=== PATIENT | female | born 1965 | race Caucasian/White ===

== ENCOUNTER 2024-10-09 13:52 | Emergency (ER) | payer MEDICAID ==
[~2024-10-09] VITALS: Ht 149.9 cm; Wt 55.2 kg
--- NOTE | 2024-10-09 15:51 | ED.PDOC ---
SOB-HPI HPI Comments 59 y.o female accompanied by spouse, presents to the ED for a chief complaint of a productive cough that started 2 months ago. Spouse reports patient recently had a CXR done that showed possible spots to lung region and is to follow up with securities vault supervisor on 10/18/24 to discuss further treatment. Patient has an inhaler at home and has been giving herself breathing treatments but states cough is constant lasting from minutes to hours. Patient denies any phlegm, chest pain, fever, chills, or SOB. Patient has a medical history of thyroid cancer, DM, HTN and hyperlipidemia. Chief Complaint: Cough Time Seen by MD: 15:41 Primary Care Provider: BALDEV Johns notes: Nurses Notes, Medications, Allergies Information Source: Patient, ECF Records Mode of Arrival: Ambulatory Severity: Moderate Timing: Months (2) Duration: Since onset Context: At Rest History of: Other Modifying Factors: Nothing; Exertion, Laying flat, Anxiety Associated Signs and Symptoms: Cough If cough with SOB: Productive Past Medical History PAST MEDICAL HISTORY: Cancer, DM, High Lipids, HTN Surgical History: Thyroidectomy SENIOR ELECTRONICS TECHNICIAN History: No Pertinent SENIOR ELECTRONICS TECHNICIAN History Family History Family History: Reviewed,noncontributory to illness Social History Smoker: Non-Smoker Alcohol: Denies ETOH Use Drugs: Denies Drug Use Lives In: Home Constitutional: denies: chills, diaphoresis, fatigue, fever, malaise, sweats, weakness, others EENTM: denies: blurred vision, double vision, ear bleeding, ear discharge, ear drainage, ear pain, ear ringing, eye pain, eye redness, hearing loss, mouth pain, mouth swelling, nasal discharge, nose bleeding, nose congestion, nose pain, photophobia, tearing, throat pain, throat swelling, voice changes, others Respiratory: reports: cough; denies: hemoptysis, orthopnea, SOB at rest, shortness of breath, SOB with excertion, stridor, wheezing, others Cardiovascular: denies: chest pain, dizzy spells, diaphoresis, Dyspnea on exertion, edema, irregular heart beat, left arm pain, lightheadedness, palpitations, PND, syncope, others Gastrointestinal: denies: abdomen distended, abdominal pain, blood streaked bowels, constipated, diarrhea, dysphagia, difficulty swallowing, hematemesis, melena, nausea, poor appetite, poor fluid intake, rectal bleeding, rectal pain, vomiting, others Genitourinary: denies: abnormal vagina bleeding, burning, dyspareunia, dysuria, flank pain, frequency, hematuria, incontinence, pain, , vagina discharge, urgency, others Neurological: denies: dizziness, fainting, headache, left sided numbness, left sided weakness, numbness, paresthesia, pre-existing deficit, right sided numbness, right sided weakness, seizure, speech problems, tingling, tremors, weakness, others Musculoskeletal: denies: back pain, gout, joint pain, joint swelling, muscle pain, muscle stiffness, neck pain, others Integumetry: denies: bruises, change in color, change in hair/nails, dryness, laceration, lesions, lumps, rash, wounds, others Allergic/Immunocompromised: denies: Difficulty Healing, Frequent Infections, H richa, Itching, others Hematologic/Lymphatic: denies: anemia, blood clots, easy bleeding, easy bruising, swollen glands, others Endocrine: denies: excessive hunger, excessive sweating, excessive thirst, excessive urination, flushing, intolerance to cold, intolerance to heat, unexplained weight gain, unexplained weight loss, others Psychiatric: denies: anxiety, bipolar disorder, depression, hopeless, panic disorder, schizophrenia, sleepless, suicidal, others All Other Systems: Reviewed and Negative Physical Exam General Appearance: No Apparent Distress, Normal HEENT: Normal ENT Inspection, Pharynx Normal, TMs Normal Neck: Full Range of Motion, Non-Tender, Normal, Normal Inspection Respiratory: No Accessory Muscle Use, Wheezing (scattered bilaterally ) Cardiovascular: No Edema, No JVD, No Murmur, No Gallop, Normal Peripheral Pulses, Regular Rate/Rhythm Breast Exam: Deferred Gastrointestinal: No Organomegaly, Non Tender, No Pulsatile Mass, Normal Bowel Sounds, Soft Genitalia: Deferred Pelvic: Deferred Rectal: Deferred Extremities: No calf tenderness, Normal capillary refill, Normal inspection, Normal range of motion, Non-tender, No pedal edema Musculoskeletal : Apperance: Normal Neurologic: Alert, fire management officer II-XII nml as Tested, No Motor Deficits, Normal Affect, Normal Mood, No Sensory Deficits Cerebellar Function: Normal Reflexes: Normal Skin: Dry, Normal Color, Warm Lymphatic: No Adenopathy Was a procedure done? Was a procedure done?: No Differential Dx Differential Diagnosis: Asthma, CHF, COPD, Pneumonia, Pneumothorax, URI, Other X-Ray, Labs, Meds, VS Vital Signs Date Time Temp Pulse Resp B/P (MAP) Pulse Ox O2 Delivery O2 Flow Rate FiO2 10/09/24 17:54 90 17 94 Room Air 10/09/24 17:54 98.9 90 17 124/97 (106) 94 98.9 10/09/24 16:24 110 10/09/24 15:59 16 94 Room Air* 0 21 10/09/24 13:55 22 95 Room Air* 0 21 10/09/24 13:55 98.1 91 22 171/98 (122) 95 98.1 Current Medications Medications (Trade) Dose Ordered Sig/Joanne Route Start Time Stop Time Status Last Admin Albuterol (Ventolin Medneb) 5 mg ONCE ONCE NEB 10/09/24 16:00 10/09/24 16:01 DC 10/09/24 15:59 Ipratropium [place] (Atrovent Medneb) 0.5 mg ONCE ONCE NEB 10/09/24 16:00 10/09/24 16:01 DC 10/09/24 15:59 Azithromycin (Zithromax Tablet) 500 mg ONCE ONCE PO 10/09/24 16:00 10/09/24 16:01 DC 10/09/24 16:06 Magnesium Oxide (Mag-Ox Tablet) 800 mg ONCE ONCE PO 10/09/24 16:00 10/09/24 16:01 DC 10/09/24 16:06 Time of 1ST Reevaluation: 18:05 Reevaluation 1ST: Improved Patient Education/Counseling: Diagnosis, Treatment Family Education/Counseling: Diagnosis, Treatment Departure 1 Departure Time of Disposition: 18:05 Impression: Primary Impression: Bronchospasm, acute Disposition: 01 HOME / SELF CARE / HOMELESS Condition: Critical e-Prescriptions Azithromycin (Azithromycin) 500 Mg Tab 1 TAB PO DAILY for 7 Days, #7 TAB Prov: WHITNEY OLIVO MD 10/09/24 Prednisone (Prednisone) 20 Mg Tab 20 MG PO DAILY for 5 Days, #5 TAB Prov: WHITNEY OLIVO MD 10/09/24 Albuterol Sulfate (Albuterol Sulfate Hfa) 108 Mcg/Act Aer 108 MCG IN Q6HP PRN for 9 Days, #1 AER Prov: WHITNEY OLIVO MD 10/09/24 Albuterol Sulfate (Albuterol Sulfate) 0.083 % Neb 1 VIAL NEB Q4HPRN PRN, #50 VIAL Prov: WHITNEY OLIVO MD 10/09/24 Discharged With: Self Critical Care Note Critical Care Time?: No Stability Stability form required: No Heart Score Heart Score: Heart Score Response (Comments) Value History Slightly Suspicious 0 EKG Normal 0 Age 45-64 1 Risk Factors 1 or 2 risk factors 1 Troponin Normal limit 0 Total 2 I personally scribed for WHITNEY OLIVO MD ([email or web address]) on 10/09/24 at 15:51. Electronically submitted by Myla Luo ([facility]). WHITNEY OLIVO MD Oct 09, 2024 15:51
[2024-10-09] MEDS: IPRATROPIUM BROM 0.5 MG/2.5ML INH SOL NEB ONE (15:59)
[2024-10-09] MEDS: ALBUTEROL SULF 2.5 MG/0.5ML(0.5%) NEB SOLN NEB ONE (15:59)
[2024-10-09] MEDS: MAGNESIUM OXIDE 400 MG TAB PO ONE (16:06)
[2024-10-09] MEDS: AZITHROMYCIN 250 MG TAB PO ONE (16:06)
--- NOTE | 2024-10-09 16:46 | DVH ---
EXAM: XY CHEST XRAY 1 VIEW HISTORY: SOB COMPARISON: None TECHNIQUE: Portable AP view of the chest was performed. FINDINGS: No pneumothorax, consolidative infiltrates, or pulmonary edema. There is mild central perib ronchial thickening. The heart is not enlarged. IMPRESSION: Mild reactive airways disease. The lungs are otherwise clear.
[2024-10-09] MEDS ORDERED: ALBU0.084 NEB (18:04)
[2024-10-09] MEDS ORDERED: PRED20TA2 PO (18:04)
[2024-10-09] MEDS ORDERED: ALBU108A5 IN (18:04)
[2024-10-09] MEDS ORDERED: AZIT500T66 PO (18:04)
[2024-10-09 18:39] VITALS: BP 122/84; PULSE 88; RESP 20; TEMP 98; O2SAT 96
== END 2024-10-09 18:43 | disposition home or self-care (01) ==
LOC: ER 13:52
DX: J98.01 Acute bronchospasm (principal); I10 Essential (primary) hypertension; E11.9 Type 2 diabetes mellitus without complications; E78.5 Hyperlipidemia, unspecified; Z85.850 Personal history of malignant neoplasm of thyroid; Z90.89 Acquired absence of other organs
CPT/HCPCS: 71045; 94640

== ENCOUNTER 2024-11-28 03:37 | Emergency (ER) | payer MEDICAID ==
[~2024-11-28] VITALS: Ht 160 cm; Wt 90.9 kg
[~2024-11-28 03:37] MED LIST: ALBU0.084 NEB; ALBU108A5 IN; AZIT500T66 PO; PRED20TA2 PO
--- NOTE | 2024-11-28 04:05 | ED.PDOC ---
HPI (NEURO) HPI Comments Pt BIBA d/t headache x2 hrs while at rest, described as a throbbing. Denies N/V, dizziness, blurred vision. BEFAST neagtive. Pt A&O x4. Able to ambulate with steady gait. Chief Complaint: Headache Time Seen by MD: 04:03 Primary Care Provider: BALDEV Johns Notes: Nurses Notes, Medications, Allergies Information Source: Patient Mode of Arrival: EMS Past Medical History PAST MEDICAL HISTORY: Cancer, DM, High Lipids, HTN Surgical History: Thyroidectomy PAPER CONE GRADER History: No Pertinent PAPER CONE GRADER History Family History Family History: Reviewed,noncontributory to illness Social History Smoker: Non-Smoker Alcohol: Denies ETOH Use Drugs: Denies Drug Use Lives In: Home Constitutional: denies: chills, diaphoresis, fatigue, fever, malaise, sweats, weakness, others EENTM: denies: blurred vision, double vision, ear bleeding, ear discharge, ear drainage, ear pain, ear ringing, eye pain, eye redness, hearing loss, mouth pain, mouth swelling, nasal discharge, nose bleeding, nose congestion, nose pain, photophobia, tearing, throat pain, throat swelling, voice changes, others Respiratory: denies: cough, hemoptysis, orthopnea, SOB at rest, shortness of breath, SOB with excertion, stridor, wheezing, others Cardiovascular: denies: chest pain, dizzy spells, diaphoresis, Dyspnea on exertion, edema, irregular heart beat, left arm pain, lightheadedness, palpitations, PND, syncope, others Gastrointestinal: denies: abdomen distended, abdominal pain, blood streaked bowels, constipated, diarrhea, dysphagia, difficulty swallowing, hematemesis, melena, nausea, poor appetite, poor fluid intake, rectal bleeding, rectal pain, vomiting, others Genitourinary: denies: abnormal vagina bleeding, burning, dyspareunia, dysuria, flank pain, frequency, hematuria, incontinence, pain, , vagina discharge, urgency, others Neurological: reports: headache; denies: dizziness, fainting, left sided numbness, left sided weakness, numbness, paresthesia, pre-existing deficit, right sided numbness, right sided weakness, seizure, speech problems, tingling, tremors, weakness, others Musculoskeletal: denies: back pain, gout, joint pain, joint swelling, muscle pain, muscle stiffness, neck pain, others Integumetry: denies: bruises, change in color, change in hair/nails, dryness, laceration, lesions, lumps, rash, wounds, others Allergic/Immunocompromised: denies: Difficulty Healing, Frequent Infections, Hives, Itching, others Hematologic/Lymphatic: denies: anemia, blood clots, easy bleeding, easy bruising, swollen glands, others Endocrine: denies: excessive hunger, excessive sweating, excessive thirst, excessive urination, flushing, intolerance to cold, intolerance to heat, unexplained weight gain, unexplained weight loss, others Psychiatric: denies: anxiety, bipolar disorder, depression, hopeless, panic disorder, schizophrenia, sleepless, suicidal, others Physical Exam General Appearance: No Apparent Distress, Normal HEENT: Normal ENT Inspection, Pharynx Normal, TMs Normal Neck: Full Range of Motion, Non-Tender Respiratory: Lungs Clear, No Respiratory Distress, Normal Breath Sounds Cardiovascular: No Edema, No JVD, No Murmur, No Gallop, Normal Peripheral Pulses, Regular Rate/Rhythm Breast Exam: Deferred Gastrointestinal: No Organomegaly, Non Tender, No Pulsatile Mass, Normal Bowel Sounds, Soft Genitalia: Deferred Pelvic: Deferred Rectal: Deferred Extremities: No calf tenderness, Normal capillary refill, Normal inspection, Normal range of motion, Non-tender, No pedal edema Musculoskeletal : Apperance: Normal Neurologic: Alert, digital operations analyst II-XII nml as Tested, No Motor Deficits, Normal Affect, Normal Mood, No Sensory Deficits Cerebellar Function: Normal Reflexes: Normal Skin: Dry, Normal Color, Warm Lymphatic: No Adenopathy Was a procedure done? Was a procedure done?: No Differential Diagnosis (SZ) Headache: Migraine, Intracerebral Hemorrhage, Subarachnoid Hemorrhage, Subdural Hemorrhage, Mass Lesion, Post-Traumatic X-Ray, Labs, Meds, VS Vital Signs Date Time Temp Pulse Resp B/P (MAP) Pulse Ox O2 Delivery O2 Flow Rate FiO2 11/28/24 05:04 74 18 95 Room Air* 0 21 11/28/24 05:04 98.3 74 18 146/82 (103) 95 98.3 11/28/24 04:45 149/88 11/28/24 03:40 97.8 101 18 174/80 (111) 97 97.8 Current Medications Medications (Trade) Dose Ordered Sig/Joanne Route Start Time Stop Time Status Last Admin Dexamethasone Sodium Phosphate (Decadron Injection) 10 mg ONCE ONCE IM 11/28/24 05:30 11/28/24 05:31 DC 11/28/24 05:44 Ketorolac Tromethamine (Toradol Injection) 30 mg ONCE ONCE IM 11/28/24 05:30 11/28/24 05:31 DC 11/28/24 05:45 X-Ray, Labs, Meds, VS Comment Patient given Toradol 30 mg IM and Decadron 10 mg IM reports improvement in headache requesting discharge at this time. Advised to rest increase p.o. fluids with electrolytes follow up with your PCP in 2 days ER return precautions given patient indicates understanding agrees with discharge plan of care. Time of 1ST Reevaluation: 04:05 Reevaluation 1ST: Unchanged Time of 2ND Reevaluation: 05:56 Reevaluation 2ND: Improved Patient Education/Counseling: Diagnosis, Treatment, Prognosis, Need For Follow Up Family Education/Counseling: No Family Present Departure 1 Departure Time of Disposition: 05:56 Impression: Primary Impression: Headache Qualified Codes: R51.9 - Headache, unspecified Disposition: 01 HOME / SELF CARE / HOMELESS Condition: Stable Discharged With: Self Critical Care Note Critical Care Time?: No Stability Stability form required: SONIA Crump November 28, 2024 04:05
[2024-11-28] MEDS ORDERED: KETOROLAC TROMETH 30 MG/ML 1ML VIAL IV ONE (04:15)
[2024-11-28] MEDS ORDERED: SODIUM CHLORIDE 0.9% 1,000 ML IV ONE (04:15)
[2024-11-28] MEDS ORDERED: PROCHLORPERAZINE EDISYLATE 5 MG/ML 2ML VIAL IV ONE (04:15)
[2024-11-28] MEDS ORDERED: DexAMETHasone SOD PHOS 10MG/1ML VIAL INJ IV ONE (04:15)
[2024-11-28] MEDS: cloNIDine HCL 0.1 MG TAB PO ONE (04:45)
[2024-11-28] MEDS ORDERED: cloNIDine 0.1 mg/24hr 7 DAY PATCH TD ONE (04:45)
[2024-11-28 05:04] VITALS: PULSE 74; RESP 18; O2SAT 95
[2024-11-28] MEDS: ONDANSETRON ODT 4 MG TAB PO ONE (05:40)
[2024-11-28] MEDS: DexAMETHasone SOD PHOS 10MG/1ML VIAL INJ IM ONE (05:44)
[2024-11-28] MEDS: KETOROLAC TROMETH 60MG/2ML VIAL IM ONE (05:45)
[2024-11-28 06:25] VITALS: BP 180/88; PULSE 76; RESP 10; TEMP 98.3; O2SAT 97
== END 2024-11-28 06:33 | disposition home or self-care (01) ==
LOC: ER 03:37 → EDBD 03:37 → ER 06:27
DX: R51.9 Headache, unspecified (principal); E11.9 Type 2 diabetes mellitus without complications; E78.5 Hyperlipidemia, unspecified; I10 Essential (primary) hypertension; Z90.89 Acquired absence of other organs
CPT/HCPCS: 96372; 99284; J1100; J1885

== ENCOUNTER 2025-02-23 10:42 | Outpatient (CLI) | payer MEDICAID | END 2025-02-23 17:00 | disposition home or self-care (01) | LOC: LAB 10:42 | PROVIDERS: ATTEND Internal Medicine | DX: Z00.01 Encounter for general adult medical examination with abnormal findings (principal) | CPT/HCPCS: 82043; 82274 ==

== ENCOUNTER 2025-03-15 13:08 | Outpatient (CLI) | payer MEDICAID ==
[2025-03-15 13:17] LABS: Hematocrit 39.9 % (36.0-46.0); Hemoglobin 13.6 g/dL (12.2-16.2); Mean Corpuscular Hemoglobin 29.5 pg (28.0-32.0); Mean Corpuscular Volume 86.6 fL (80.0-100.0); Nucleated Red Blood Cells % 0.0 %
== END 2025-03-15 17:00 | disposition home or self-care (01) ==
LOC: LAB 13:08
PROVIDERS: ATTEND Internal Medicine Pulmonary Disease
DX: J30.2 Other seasonal allergic rhinitis (principal)
CPT/HCPCS: 36415; 85025

== ENCOUNTER → 2025-04-04 | Outpatient (CLI) | payer MEDICAID ==
--- NOTE | 2025-04-11 13:48 | DVHNC2 ---
Procedure - Pulmonary function test interpretation April 04, 2025 Mild obstructive ventilatory defect. No significant bronchodilator response. Total lung capacity is below normal limits, 50% of predicted (2.3 L). Mild reduction diffusion capacity, not corrected for patient's hemoglobin (74% of predicted. Visit Coding Pulmonary Billing Provider: SARAY DE PAZ MD Date of Service if different f: Apr 04, 2025 Common Visit Codes: PROCEDURE ONLY Pulmonary Procedure Codes: 13569-46- SPIROMETRY, 17918-00- LUNG VOLUME, 67546-84- DIFFUSION CAPACITY SARAY DE PAZ MD Apr 11, 2025 13:48
--- NOTE | 2025-04-11 13:50 | DVHNC2 ---
Procedure - 6 minute walk test interpretation Date of service April 04, 2025 Completed 6 minutes of ambulation. No significant desaturation with exertion. O2 saturation ranged from 95% to 100%. Expected heart rate achieved. Mild reduction in distance walk. Visit Coding Pulmonary Billing Provider: SARAY DE PAZ MD Date of Service if different f: Apr 04, 2025 Common Visit Codes: PROCEDURE ONLY Pulmonary Procedure Codes: 40174-64- PULMONARY STRESS TESTING SARAY DE PAZ MD Apr 11, 2025 13:49
== END | disposition home or self-care (01) ==
LOC: RT 09:00
PROVIDERS: ATTEND Internal Medicine Pulmonary Disease
DX: J45.909 Unspecified asthma, uncomplicated (principal); R06.09 Other forms of dyspnea
CPT/HCPCS: 94060; 94618; 94727; 94729